=== PATIENT | male | born 1980 | race Caucasian/White ===

== ENCOUNTER 2023-11-23 11:57 | Inpatient (IN) | payer OTHER ==
[~2023-11-23] VITALS: Ht 190.5 cm; Wt 130.5 kg
[~2023-11-23 11:57] MED LIST: NAPR550 PO; OXYACE5T PO
[2023-11-23] MEDS ORDERED: NS 1,000 ML IV SCH (14:15)
[2023-11-23 14:35] LABS: BASOPHILS ABSOLUTE AUTO 0.01 K/mm3 (0.00-0.23); BASOPHILS PERCENT AUTO 1 % (0-2); EOSINOPHILS ABSOLUTE AUTO 0.02 K/mm3 (0.00-0.68); EOSINOPHILS PERCENT AUTO 2 % (0-6); Hematocrit 27.4 % (37.0-53.0); Hemoglobin 9.2 g/dL (13.5-17.5); IMMATURE GRAN ABSOLUTE AUTO 0.01 K/mm3 (0.00-0.10); IMMATURE GRAN PERCENT AUTO 1 % (0-1); LYMPHOCYTES ABSOLUTE AUTO 0.21 K/mm3 (0.84-5.20); LYMPHOCYTES PERCENT AUTO 18 % (21-46); MONOCYTES ABSOLUTE AUTO 0.41 K/mm3 (0.16-1.47); MONOCYTES PERCENT AUTO 35 % (4-13); Mean Corpuscular HGB Conc 33.6 g/dL (31.5-36.5); Mean Corpuscular Volume 86 fL (80-100); Mean Platelet Volume 11.4 fL (9.1-12.4); NEUTROPHILS ABSOLUTE AUTO 0.52 K/mm3 (1.96-9.15); NEUTROPHILS PERCENT AUTO 44 % (41-73); Platelet Count 61 K/mm3 (150-400); RDW Coefficient Variation 15.7 % (11.7-14.2); RDW Standard Deviation 50.1 fL (35.1-46.3); Red Blood Cell Count 3.17 M/mm3 (4.30-5.90)
[2023-11-23 14:36] LABS: White Blood Cell Count 1.18 K/mm3 (4.00-11.30)
[2023-11-23] MEDS ORDERED: LASIX40 MG PO (14:41)
[2023-11-23] MEDS ORDERED: VALS80 PO (14:42)
[2023-11-23] MEDS ORDERED: POTCHL20ER PO (14:42)
[2023-11-23] MEDS ORDERED: Viagra100 MG PO (14:42)
[2023-11-23] MEDS ORDERED: Triamcinolone A15 G2 TOP (14:44)
[2023-11-23] MEDS ORDERED: VENL37.5ER PO (14:45)
[2023-11-23] MEDS ORDERED: BETA.05TCA TOP (14:45)
[2023-11-23 14:49] LABS: Albumin, Blood 2.4 g/dL (3.4-5.0); Albumin/Globulin Ratio 0.7 (0.8-1.8); Bilirubin, Total 1.9 mg/dL (0.1-1.0); Bun/Creatinine Ratio 8.3 (12.0-20.0); Calcium, Blood 7.4 mg/dL (8.5-10.1); Creatinine, Blood 1.09 mg/dL (0.60-1.20); Globulin, Blood 3.6 g/dL (2.2-4.0); Potassium, Blood 3.2 mmol/L (3.5-5.5); Thyroid Stimulating Hormone 2.06 uIU/mL (0.360-4.800)
[2023-11-23 15:12] LABS: Influenza A, PCR Negative (NEGATIVE); Influenza B, PCR Negative (NEGATIVE); Resp Syncytial Virus, PCR Negative (NEGATIVE); SARS-Cov-2 (COVID-19) PCR, MMC Positive (NEGATIVE)
[2023-11-23 15:27] LABS: International Normalized Ratio 1.36; Prothrombin Time Results 14.2 Sec (9.7-11.5)
[2023-11-23] MEDS ORDERED: Potassium Chloride 10 Meq Tablet SA PO ONE (15:40)
[2023-11-23] MEDS ORDERED: Piperacillin/Tazobactam Sod 3.375 GM in NS 100 ML IV ONE (15:45)
[2023-11-23] MEDS ORDERED: Vancomycin HCL 2,500 MG in NS 500 ML IV ONE (16:05)
[2023-11-23 21:07] VITALS: BP 161/82
[2023-11-23] MEDS ORDERED: CefTRIAXone Sodium 1,000 MG in NS 100 ML IV SCH (21:24)
[2023-11-23] MEDS ORDERED: Acetaminophen 500 MG Tab PO PRN (21:30)
[2023-11-23] MEDS ORDERED: Ondansetron HCl 2 MG / ML 2ML Vial IV PRN (21:30)
[2023-11-23] MEDS ORDERED: OXYC5 (23:11)
[2023-11-23] MEDS ORDERED: Hydrocodone-Ap1 EA26 PO (23:12)
[2023-11-23] MEDS ORDERED: KYZATREX100 MG PO (23:20)
--- NOTE | 2023-11-24 02:56 | NUR ---
Pt received from ED. Pt care assumed. Assessment completed. Skin warm and dry. Resp even and unlabored. HR reg. PP toa ll extremiyties x4. Pt ambulatory from gurney to bed. Pt denies c/o on arrival. Elevated temp notd. Pt medicatd per orders. Bilateral edema to bilateral lower extrmities noted. IV infusing on arrival, completed. Lower extremety skin noted dry, psoriasis. No distress noted.
[2023-11-24 04:17] VITALS: BP 114/82
[2023-11-24 05:04] LABS: Hematocrit 27.6 % (37.0-53.0); Mean Corpuscular HGB 28.8 pg (26.0-34.0); Mean Corpuscular HGB Conc 32.6 g/dL (31.5-36.5); Mean Corpuscular Volume 88 fL (80-100); Mean Platelet Volume 11.6 fL (9.1-12.4); RDW Standard Deviation 51.5 fL (35.1-46.3); Red Blood Cell Count 3.13 M/mm3 (4.30-5.90); White Blood Cell Count 1.12 K/mm3 (4.00-11.30)
[2023-11-24 05:11] LABS: Platelet Count 50 K/mm3 (150-400)
[2023-11-24 05:18] LABS: Bun/Creatinine Ratio 7.7 (12.0-20.0); Calcium, Blood 7.3 mg/dL (8.5-10.1); Creatinine, Blood 1.04 mg/dL (0.60-1.20); Potassium, Blood 3.3 mmol/L (3.5-5.5)
[2023-11-24 05:32] LABS: BAND PERCENT MAN 6 % (0-8); BASOPHILS PERCENT MAN 0 % (0-2); EOSINOPHILS ABSOLUTE MAN 0.02 K/mm3 (0.00-0.68); EOSINOPHILS PERCENT MAN 2 % (0-6); LYMPHOCYTES % ATYPICAL MANUAL 2 % (0-0); LYMPHOCYTES PERCENT MAN 34 % (21-46); MONOCYTES ABSOLUTE MAN 0.26 K/mm3 (0.16-1.47); MONOCYTES PERCENT MAN 24 % (4-13); NEUTROPHILS ABSOLUTE MAN 0.42 K/mm3 (1.96-9.15); SEG NEUTROPHILS PERCENT MAN 32 % (41-73); TOTAL CELLS COUNTED 50
[2023-11-24] MEDS ORDERED: Vancomycin HCL 1,500 MG in NS 250 ML IV SCH (06:00)
[2023-11-24 07:27] VITALS: BP 152/85
[2023-11-24] MEDS ORDERED: Potassium Chloride 20 MEQ TabCR PO SCH (09:00)
[2023-11-24] MEDS ORDERED: Furosemide 40 MG Tab PO SCH (09:00)
[2023-11-24] MEDS ORDERED: OxyCODONE HCL 5 MG TAB PO PRN (09:50)
[2023-11-24] MEDS ORDERED: Losartan Potassium 50 MG Tab PO SCH (10:00)
[2023-11-24 10:19] VITALS: BP 134/76
[2023-11-24 15:16] VITALS: BP 133/87
[2023-11-24] MEDS ORDERED: NS 250 ML IV PRN (17:25)
--- NOTE | 2023-11-24 18:00 | NUR ---
SHIFT SUMMARY: PATIENT A/OX4, PLEASANT AND COOPERATIVE c CARE. PATIENT REPORTS CALABRESE AND PAIN TO R SIDE, MEDICATED c EMAR PRN PAIN MEDS c GOOD EFFECT. PATIENT HAS EDEMA PLUS 3 TO LLE, PLUS 2 RLE, DIURESED c PO LASIX, SCD'S IN PLACED TO BLE'S. AFIBRILE THIS SHIFT. PATIENT HAS MOD APPETITE, CONTINENT OF BLADDER, USES URINAL INDEPENDENTLY, RESTING IN BED ON/OFF T/O SHIFT. PATIENT RECEIVED IV ABX/SCHEDULED MEDS PER EMAR. VITAL SIGNS REVIEWED. PATIENT ON ENHANCED ISOLATION FOR COVID POSITIVE. CALL LIGHT IN REACH. SPOUSE IN ROOM AND PLANNING TO STAYED OVERNIGHT.
[2023-11-24 20:03] VITALS: BP 152/74
[2023-11-24] MEDS ORDERED: Guaifenesin/Dextromethorphan Syrup 5 ML UDC PO PRN (22:45)
[2023-11-25 05:18] LABS: BASOPHILS ABSOLUTE AUTO 0.01 K/mm3 (0.00-0.23); BASOPHILS PERCENT AUTO 1 % (0-2); EOSINOPHILS ABSOLUTE AUTO 0.07 K/mm3 (0.00-0.68); EOSINOPHILS PERCENT AUTO 4 % (0-6); Hematocrit 29.2 % (37.0-53.0); Hemoglobin 9.4 g/dL (13.5-17.5); IMMATURE GRAN PERCENT AUTO 0 % (0-1); LYMPHOCYTES ABSOLUTE AUTO 0.68 K/mm3 (0.84-5.20); LYMPHOCYTES PERCENT AUTO 37 % (21-46); MONOCYTES ABSOLUTE AUTO 0.28 K/mm3 (0.16-1.47); MONOCYTES PERCENT AUTO 15 % (4-13); Mean Corpuscular HGB 28.6 pg (26.0-34.0); Mean Corpuscular HGB Conc 32.2 g/dL (31.5-36.5); Mean Corpuscular Volume 89 fL (80-100); Mean Platelet Volume 12.7 fL (9.1-12.4); NEUTROPHILS ABSOLUTE AUTO 0.79 K/mm3 (1.96-9.15); NEUTROPHILS PERCENT AUTO 43 % (41-73); Platelet Count 51 K/mm3 (150-400); RDW Standard Deviation 51.7 fL (35.1-46.3); Red Blood Cell Count 3.29 M/mm3 (4.30-5.90); White Blood Cell Count 1.83 K/mm3 (4.00-11.30)
--- NOTE | 2023-11-25 05:32 | NUR ---
SHIFT SUMMARY PT A&OX4 AND COOPERATIVE OF CARE. PT C/O CHRONIC PAIN AND MEDICATED PER EMAR. PT ALSO C/O COUGH DR NOTIFIED AND ORDERS GIVEN. PT USING SCD's AND REPORTS DECREASED SWELLING IN BLE. CONTINUING IV ABX PER EMAR. AT BEDSIDE T/O NIGHT. BED IN LOWEST POSITION AND CALL LIGHT IN REACH.
[2023-11-25 05:44] VITALS: BP 152/85
[2023-11-25 05:51] LABS: Anion Gap 11 mmol/L (3-11); Blood Urea Nitrogen 10 mg/dL (8-24); Bun/Creatinine Ratio 10.3 (12.0-20.0); CO2, Blood 22 mmol/L (21-32); Calcium, Blood 7.5 mg/dL (8.5-10.1); Chloride, Blood 113 mmol/L (98-108); Creatinine, Blood 0.98 mg/dL (0.60-1.20); Glomerular Filtration Rate 97 (60-); Glucose, Blood 82 mg/dL (70-99); Potassium, Blood 3.5 mmol/L (3.5-5.5); Sodium, Blood 142 mmol/L (136-145); Vancomycin, Trough 12.7 ug/mL (5.0-10.0)
[2023-11-25 07:14] VITALS: BP 153/84
[2023-11-25] MEDS ORDERED: Potassium Chloride 20 MEQ/15 ML UDC PO SCH (09:00)
[2023-11-25] MEDS ORDERED: ACET500 PO (11:51)
[2023-11-25] MEDS ORDERED: LACT PO (11:54)
[2023-11-25] MEDS ORDERED: CEPH500 PO (11:54)
[2023-11-25] MEDS ORDERED: VENL37.5ER PO (12:15)
--- NOTE | 2023-11-25 12:29 | NUR ---
SHIFT/DISCHARGE SUMMARY: PATIENT A/OX4, CALM, PLEASANT AND COOPERATIVE c CARE. PATIENT DENIES GENERALIZED PAIN, CP/PRESSURE, SOB, N/V AND DIZZINESS. PATIENT EDEMA TO BLE'S HAS IMPROVED. PATIENT LUNGS CLEAR T/O TO AUSCULTATION. PATIENT RECEIVED IV ABX/SCHEDULED MEDS PER EMAR. PATIENT HAS GOOD APPETITE, CONTINENT OF BOWEL/BLADDER, REPORTS ONE BM THIS AM. PATIENT AMBULATES IN ROOM/BATHROOM INDEPENDENTLY. PATIENT REPORTS "OVERALL, I FEEL A LOT BETTER TODAY COMPARED YESTERDAY. PIV TO RAC DC'D. PATIENT DISCHARGE HOME. DISCHARGE INSTRUCTIONS PACKET GIVEN TO PATIENT. EDUCATE PATIENT REGARDING ADMITTING DX'S OF CELLULITIS, S/S, TX, SELF CARE, NEW PRESCRIBED RX AND TO F/U c PCP. PATIENT AND SPOUSE AT BEDSIDE VERBALIZED UNDERSTANDING AND NO FURTHER QUESTIONS AT THIS TIME. RX WAS FAXED TO PATIENT PREFERRED PHARMACY-[facility]. ALL PATIENT PERSONAL BELONGINGS WERES ENT HOME c THE PATIENT. PATIENT LEFT THE ROOM AT 1229 ACCOMPANIED BY SPOUSE. PATIENT REFUSED TO BE TRANSPORTED VIA WHEELCHAIR.
== END 2023-11-25 12:28 | disposition home or self-care (01) | DRG 602 ==
LOC: ER 11:57 → MEDS 19:20
PROVIDERS: Emergency Medicine; Nurse Practitioner Acute Care; Student in an Organized Health Care Education/Training Program; ADMIT Internal Medicine
DX: L03.116 Cellulitis of left lower limb (principal); U07.1 COVID-19; D61.818 Other pancytopenia; E87.6 Hypokalemia; I10 Essential (primary) hypertension; F32.A Depression, unspecified; F41.9 Anxiety disorder, unspecified; K70.30 Alcoholic cirrhosis of liver without ascites; B18.2 Chronic viral hepatitis C; Z88.8 Allergy status to other drugs, medicaments and biological substances; Z79.899 Other long term (current) drug therapy
CPT/HCPCS: 0241U; 36415; 71045; 80048; 80053; 80202; 82140; 83605; 83690; 83880; 84443; 84484; 85025; 85610; 93005; 93010; 93971; 96361; 96365; 96366; 96367; 99285-25; A9270; J0696; J2543; J3370; J7030; J7040; J7050